=== PATIENT | female | born 1970 | race Caucasian/White ===

== ENCOUNTER 2018-11-25 13:33 | Emergency (ER) | payer BC ==
[2018-11-25 14:03] VITALS: BP 121/64
--- NOTE | 2018-11-25 14:24 | UC ---
Back Pain HPI - HPI Summary HPI Summary: 48-year-old who presents with 2 day history of left flank pain. States the pain waxes and wanes in intensity. At its most severe it is very sharp in nature and a dull ache at times. Radiates from left flank to left lower abdomen. Pain worsens when sitting. Has taken ibuprofen with some improvement in the pain. Denies fever, chills, rash, abdominal pain, nausea, vomiting, dysuria, frequency, urgency, hematuria, weakness, numbness, or tingling in the lower extremities, or loss of control of bowel or bladder. - History of Current Complaint Chief Complaint: UCBackPain Stated Complaint: LOW BACK PAIN Time Seen by Provider: 11/25/18 14:06 Hx Obtained From: Patient Pain Intensity: 3 - Allergies/Home Medications Allergies/Adverse Reactions: Allergies Allergy/AdvReac Type Severity Reaction Status Date / Time No Known Allergies Allergy Verified 11/25/18 14:03 Home Medications: Home Medications NK [No Home Medications Reported] 11/25/18 [History Confirmed 11/25/18] PMH/Surg Hx/FS Hx/Imm Hx Previously Healthy: Yes - Denies significant PMH - Surgical History Surgical History: Yes Surgery Procedure, Year, and Place: partial hysterectomy - Family History Known Family History: Positive: Non-Contributory - Social History Occupation: Employed Full-time Lives: With Family Alcohol Use: Weekly Substance Use Type: None Smoking Status (MU): Heavy Every Day Tobacco Smoker Review of Systems All Other Systems Reviewed And Are Negative: Yes Constitutional: Negative: Fever, Chills Skin: Negative: Rash Respiratory: Positive: Negative Cardiovascular: Positive: Negative Gastrointestinal: Negative: Abdominal Pain, Vomiting, Nausea Genitourinary: Negative: Dysuria, Hematuria, Frequency, Urgency, Vaginal/Penile Discharge, Abnormal Bleeding Motor: Negative: Weakness Neurovascular: Negative: Decreased Sensation Musculoskeletal: Positive: Other: - See HPI Neurological: Positive: Negative Is Patient Immunocompromised?: No Physical Exam - Summary Physical Exam Summary: GENERAL APPEARANCE: Well developed, well nourished, alert and cooperative, and appears to be in no acute distress. CARDIAC: Normal S1 and S2. No S3, S4 or murmurs. Rhythm is regular. There is no peripheral edema, cyanosis or pallor. Extremities are warm and well perfused. Capillary refill is less than 2 seconds. Peripheral pulses intact. LUNGS: Clear to auscultation without rales, rhonchi, wheezing or diminished breath sounds. ABDOMEN: Positive bowel sounds. Soft, nondistended, nontender. No guarding or rebound. No masses or hepatosplenomegally. No CVA tenderness. MUSKULOSKELETAL: ROM intact to all extremities. No joint erythema or tenderness. Normal muscular development. Normal gait. BACK: Examination of the spine reveals no spinal deformity or tenderness, decreased range of motion or muscular spasm. SKIN: Skin normal color, texture and turgor with no lesions or eruptions. Triage Information Reviewed: Yes Vital Signs: Initial Vital Signs Temp 97.8 F 11/25/18 13:59 Pulse 89 11/25/18 13:59 Resp 18 11/25/18 13:59 BP 121/64 11/25/18 13:59 Pulse Ox 100 11/25/18 13:59 Vital Signs Reviewed: Yes Back Pain Course/Dx - Course Course Of Treatment: 48-year-old who presents with 2 day history of left flank pain. States the pain waxes and wanes in intensity. At its most severe it is very sharp in nature and a dull ache at times. Radiates from left flank to left lower abdomen. Pain worsens when sitting. Has taken ibuprofen with some improvement in the pain. Denies fever, chills, rash, abdominal pain, nausea, vomiting, dysuria, frequency, urgency, hematuria, weakness, numbness, or tingling in the lower extremities, or loss of control of bowel or bladder. Afebrile. Vital signs stable. Patient's physical exam was overall unremarkable and her pain was not reproducible with palpation. [id number] urinalysis shows trace blood. I reviewed these results with the patient and we discussed that with this finding the possibility of a kidney stone remains within the differential diagnosis as well as a musculoskeletal back pain.. We discussed that the majority of kidney stones are small and will pass on their own without any intervention. Reviewed treatment options including obtaining a CT scan versus watchful waiting including the risks and benefits of both. The patient is electing for watchful waiting at this time. Recommending use of over-the- counter NSAID for pain management and pushing fluids. She is to return here or follow up with her primary care provider in 2-3 days if symptoms do not improve. Anticipatory guidance and warning symptoms requiring immediate evaluation in the emergency room were reviewed with the patient. Verbalizes understanding and agrees with plan of care. - Differential Dx/Diagnosis Differential Diagnosis/HQI/PQRI: Renal Colic, Strain Provider Diagnosis: Acute left flank pain Discharge ED - Sign-Out/Discharge Documenting (check all that apply): Patient Departure All imaging exams completed and their final reports reviewed: No Studies - Discharge Plan Condition: Stable Disposition: HOME Patient Education Materials: Flank Pain (ED) Referrals: Ashley Mcneal MD [Primary Care Provider] - 2 Days Additional Instructions: The urine test performed in the clinic today showed a trace amount of blood. With this finding I cannot fully rule out the possibility of a kidney stone as he cause of your pain however you have elected to take a watchful waiting approach at this time and defer any CT scanning. Take ibuprofen (Advil, Motrin) 600 mg every 8 hours as needed for pain. Be sure to push lots of fluids. Return here or follow-up with your primary care provider in 2-3 days if symptoms are not improving. Seek immediate medical attention in the emergency room if you develop a fever greater than 100.5 F, have severe pain that is not managed with the ibuprofen, persistent or projectile vomiting, numbness, tingling, or weakness in your legs , he loses control of your bowel or bladder, or have any worsening of symptoms. - Billing Disposition and Condition Condition: STABLE Disposition: Home
== END 2018-11-25 14:38 | disposition home or self-care (01) ==
LOC: UCCORT 13:33 → MERGE 13:33 → UCCORT 14:38
DX: R10.9 Unspecified abdominal pain (principal); R10.32 Left lower quadrant pain; M54.5 Low back pain
CPT/HCPCS: 81003; 99201; G0463